=== PATIENT | female | born 1960 | race Caucasian/White ===

== ENCOUNTER → 2024-10-10 08:58 | Outpatient (REF) | payer MEDICARE, SELFPAY | LOC: RCS 08:58 | PROVIDERS: ATTENDING PHYSICIAN Internal Medicine Cardiovascular Disease; FAMILY PHYSICIAN Family Medicine | DX: R06.09 Other forms of dyspnea (principal) | CPT/HCPCS: 93017; 93350 ==

== ENCOUNTER → 2024-10-30 11:02 | Outpatient (REF) | payer MEDICARE, SELFPAY | LOC: RCS 11:02 | PROVIDERS: ATTENDING PHYSICIAN Internal Medicine Cardiovascular Disease; FAMILY PHYSICIAN Family Medicine | DX: R06.09 Other forms of dyspnea (principal) | CPT/HCPCS: 93306 ==